=== PATIENT | male | born 1940 | race Caucasian/White ===

== ENCOUNTER 2018-10-02 09:21 | Inpatient (IN) ==
[2018-10-02] MEDS ORDERED: Nitroglycerin 0.4 MG TAB.SUBL SL PRN (12:58)
[2018-10-02] MEDS ORDERED: *HR* OxyCODONE/APAP 5/325 TABLET PO PRN (12:58)
--- NOTE | 2018-10-02 15:55 | Internal Med History&Physical ---
Date of Encounter: 10/02/18 Time of Encounter: 15:30 Assessment and Plan (1) Coronary artery disease Current visit: No Status: Acute Status post three-vessel CABG. Continue aspirin and metoprolol with simvastatin. Qualifiers: Coronary Disease-Associated Artery/Lesion type: [place] artery [place] vs. transplanted heart: [place] heart Associated angina: without angina Qualified Code(s): I25.10 - Atherosclerotic heart disease of [place] coronary artery without angina pectoris (2) Hyperlipidemia Current visit: Yes Status: Chronic Continue simvastatin Qualifiers: Hyperlipidemia type: unspecified Qualified Code(s): E78.5 - Hyperlipidemia, unspecified (3) Postoperative atrial fibrillation Current visit: No Status: Acute Now in NSR. Continue metoprolol, amiodarone, and aspirin. (4) Anemia Current visit: Yes Status: Acute Not present preoperatively. Monitor CBC. Qualifiers: Anemia type: unspecified type Qualified Code(s): D64.9 - Anemia, unspecified Internal Medicine - H&P: HPI Chief complaint: CAD Admitted From: Hospital to Hospital Transfer Plans for Post Hospital Care: Home History of present illness: Mr. Patel is a 78 year old male who underwent elective 3 vessel CABG surgery 09/27/2018 at [facility]. He had HIGHTOWER to LAD, SVG to intermediate branch and obtuse marginal branch #1 of the circumflex. His postop course was completed by transient atrial fibrillation that responded to amiodarone and beta saul. Following stabilization he was discharged to [facility] swing bed for ongoing care n eeds prior to returning to independent living at home. Cardiovascular history is negative for hypertension [place] heart failure angina DVT or pulmonary embolus. Echocardiogram 09/18/2018 showed LVEF of 50-55%. Interventricular septum and posterior wall thickness measurements were 1.35 and 1.30 cm respectively. The E/A ratio was 0.6. There was mild tricuspid regurgitation present. Past Med Surg Social Fam HX - Past Medical History Medical history: hyperlipidemia, hypertension Psychiatric history: no psych history - Past Surgical History Surgical History: coronary bypass (CABG), herniorrhaphy - Social History Smoking Status: Former smoker Smokeless Tobacco Status: No Alcohol use: none Drug use: none - Family History Mother Age at : 84 Hx Family Cardiac Disorders: Yes Father Living Status: Age at : 95 Hx Family Cardiac Disorders: Yes Internal Medicine - H&P: Meds Aspirin [Adult Aspirin] 81 mg PO DAILY 09/18/18 [History] Metoprolol Succinate [Toprol Xl] 25 mg PO DAILY 09/18/18 [History] Nitroglycerin [Nitrostat] 0.4 mg SL DAILY PRN 09/18/18 [History] Simvastatin [Zocor] 40 mg PO HS 09/18/18 [History] Amiodarone [Cordarone] 200 mg PO DAILY #30 tablet 10/02/18 [Rx] DiphenhydraMINE [Benadryl] 50 mg PO HS PRN capsule 10/02/18 [Rx] OxyCODONE/APAP 5/325 [Percocet 5/325 MG] 1 each PO Q4HR PRN 7 Days #10 tablet 10/02/18 [Rx] Allergy/AdvReac Type Severity Reaction Status Date / Time No Known Allergies Allergy Unverified 09/04/18 12:46 All Systems PM: A 10-system review of systems was performed and is negative for pertinent findings except as documented above in the HPI. Review of systems: Gen.: He states his weight has been stable for several months Cardiovascular: As per history of present illness Respiratory: He smoked from age [age] never exceeding 1 pack per day. He denies chronic lung disease and does not use home oxygen GI: He denies disorders of his liver gallbladder or exocrine pancreas : He denies hematuria dysuria or kidney stones Neurologic: He denies large distribution strokes or seizures. Endocrine: He has hyperlipidemia but denies diabetes or thyroid disease Hematology/oncology: Denies blood disorders or cancers. He developed anemia post operatively. Psychiatric: Denies anxiety depression or other mental health diagnoses. [place] skeletal: He denies arthritis gout or other bone joint or muscle disorders. - Constitutional Vitals: Temp Pulse Resp BP Pulse Ox 98.5 F 67 16 134/53 98 10/02/18 11:55 10/02/18 11:55 10/02/18 11:55 10/02/18 11:55 10/02/18 11:55 Exam: Gen.: He is a well-developed well-nourished male resting comfortably in bed who appears in no acute distress HEENT: Head is atraumatic and normocephalic. Eyes: EOMI. There is no scleral icterus. Mouth: Mucosa is moist. Neck: Supple and nontender. There is no thyromegaly or adenopathy noted. Heart: Regular without murmurs gallops or ectopics Lungs: No wheezes or crackles are heard Abdomen: Soft and nontender. No masses or guarding are noted. Chest: He has Steri-Strips over his midline surgical incision. No significant drainage is noted. Extremities: He has significant ecchymosis in his left upper leg. He has a Band-Aid covering an incision in the left lower leg. Dorsalis pedis and tibial pulses are trace palpable bilaterally. He has pallor of his left great toe. Neurologic: Mental status: He is talkative and a good historian. Cranial nerves: Smile is symmetric. Forehead wrinkles bilaterally. Tongue protrudes midline. EOMI. Motor: There is no pronator drift. Cerebellar: Finger to nose is intact bilaterally. Skin: Warm and dry
[2018-10-02] MEDS: Melatonin 3 MG TABLET PO SCH (21:11)
[2018-10-03 07:31] LABS: Basophils % 0.4 %; Eosinophils # 0.2 K/mcL (0.0-0.6); Eosinophils % 2.8 %; Hematocrit 27.7 % (37.5-50.1); Hemoglobin 9.2 g/dL (12.9-16.9); Immature Granulocytes % 0.4 % (0-4); Lymphocytes # 1.2 K/mcL (0.6-4.6); Lymphocytes % 16.3 %; Mean Corpuscular HGB Conc 33.2 g/dL (31.6-35.5); Mean Corpuscular Hemoglobin 32.7 pg (28.0-33.3); Mean Corpuscular Volume 98.6 fL (83.0-100.0); Monocytes # 0.7 K/mcL (0.0-1.3); Monocytes % 10.1 %; Neutrophils # 5.1 K/mcL (1.6-8.9); Platelet Count 204 K/mcL (140-400); Red Blood Count 2.81 M/mcL (4.19-5.50); Red Cell Distribution Width 15.2 % (11.5-14.5)
[2018-10-03 08:54] LABS: % Iron Saturation 12 % (20-55); Iron 31 mcg/dL (65-175); Transferrin 187 mg/dL (203-362)
[2018-10-03 09:12] LABS: Ferritin 191 ng/mL (20-250)
[2018-10-03 09:17] LABS: Folate 13.4 ng/mL (3.0-16.0)
[2018-10-03] MEDS: Metoprolol XL (24 HR) Succ 25 MG TAB.ER.24H PO SCH (09:39)
[2018-10-03] MEDS: Aspirin Enteric Coated 81 MG Tablet PO SCH (09:40)
[2018-10-03] MEDS: *HR* Amiodarone 200 MG TABLET PO SCH (09:40)
--- NOTE | 2018-10-03 15:53 | Internal Med Progress Note ---
Date of Encounter: 10/03/18 Time of Encounter: 15:45 - Assessment and plan (1) Coronary artery disease Current Visit: No Status: Acute Assessment and plan: October 03. Continue aspirin, metoprolol, and simvastatin. Qualifiers: Coronary Disease-Associated Artery/Lesion type: [place] artery [place] vs. transplanted heart: [place] heart Associated angina: without angina Qualified Code(s): I25.10 - Atherosclerotic heart disease of [place] coronary artery without angina pectoris (2) Hyperlipidemia Current Visit: Yes Status: Chronic Assessment and plan: October 03. Continue simvastatin Qualifiers: Hyperlipidemia type: unspecified Qualified Code(s): E78.5 - Hyperlipidemia, unspecified (3) Postoperative atrial fibrillation Current Visit: No Status: Acute Assessment and plan: October 03. Continue metoprolol, amiodarone, and aspirin (4) Anemia Current Visit: Yes Status: Acute Assessment and plan: October 03. Anemia testing showed iron 31, transferrin saturation 12%, transferrin 187, ferritin 191, B12 277, and folate 13.4. Hemoglobin has improved to 9.2. Start ferrous sulfate with ascorbic acid in a.m. Qualifiers: Anemia type: unspecified type Qualified Code(s): D64.9 - Anemia, unspecified - Subjective Interval history: October 03. He has no new complaints and feels well. - Constitutional Vitals: Temp Pulse Resp BP Pulse Ox 98.2 F 72 18 109/62 98 10/03/18 06:51 10/03/18 06:51 10/03/18 06:51 10/03/18 06:51 10/03/18 14:37 Exam: He is sitting in a chair at bedside resting comfortably. His affect is bright and cheerful. I reviewed his medications and lab results. Internal Medicine: Result - Labs CBC & Chem 7: 10/03/18 07:24 Labs: Short CBC 10/03/18 Range/Units 07:24 WBC 7.3 (4.3-11.1) K/mcL Hgb 9.2 L (12.9-16.9) g/dL Hct 27.7 L (37.5-50.1) % Plt Count 204 D (140-400) K/mcL Neutrophils # 5.1 (1.6-8.9) K/mcL Consult Discharge Plan - Plan Referrals: Solange Parker DO [Primary Care Provider] - 1 week
[2018-10-03] MEDS: Melatonin 3 MG TABLET PO SCH (22:14)
[2018-10-04] MEDS: Ascorbic Acid 500 MG TABLET PO SCH (05:44)
[2018-10-04] MEDS: Aspirin Enteric Coated 81 MG Tablet PO SCH (10:11)
[2018-10-04] MEDS: Metoprolol XL (24 HR) Succ 25 MG TAB.ER.24H PO SCH (10:11)
[2018-10-04] MEDS: *HR* Amiodarone 200 MG TABLET PO SCH (10:11)
[2018-10-04] MEDS: Melatonin 3 MG TABLET PO SCH (21:08)
[2018-10-05] MEDS: Ascorbic Acid 500 MG TABLET PO SCH (06:35)
[2018-10-05] MEDS: Metoprolol XL (24 HR) Succ 25 MG TAB.ER.24H PO SCH (08:37)
[2018-10-05] MEDS: *HR* Amiodarone 200 MG TABLET PO SCH (08:37)
[2018-10-05] MEDS: Aspirin Enteric Coated 81 MG Tablet PO SCH (08:37)
--- NOTE | 2018-10-05 11:15 | Internal Med Progress Note ---
Date of Encounter: 10/05/18 Time of Encounter: 11:00 - Assessment and plan (1) Coronary artery disease Current Visit: No Status: Acute Assessment and plan: October 03. Continue aspirin, metoprolol, and simvastatin. Qualifiers: Coronary Disease-Associated Artery/Lesion type: [place] artery [place] vs. transplanted heart: [place] heart Associated angina: without angina Qualified Code(s): I25.10 - Atherosclerotic heart disease of [place] coronary artery without angina pectoris (2) Hyperlipidemia Current Visit: Yes Status: Chronic Assessment and plan: October 03. Continue simvastatin Qualifiers: Hyperlipidemia type: unspecified Qualified Code(s): E78.5 - Hyperlipidemia, unspecified (3) Postoperative atrial fibrillation Current Visit: No Status: Acute Assessment and plan: October 03. Continue metoprolol, amiodarone, and aspirin (4) Anemia Current Visit: Yes Status: Acute Assessment and plan: October 03. Anemia testing showed iron 31, transferrin saturation 12%, transferrin 187, ferritin 191, B12 277, and folate 13.4. Hemoglobin has improved to 9.2. Start ferrous sulfate with ascorbic acid in a.m. October 05. Continue ferrous sulfate with ascorbic acid. Monitor CBC periodically. Qualifiers: Anemia type: unspecified type Qualified Code(s): D64.9 - Anemia, unspecified - Subjective Interval history: October 03. He has no new complaints and feels well. October 05. He has no new complaints and feels well. He states he does not sleep well at night. He has minimal pain in his chest and legs. He denies dyspnea. - Constitutional Vitals: Temp Pulse Resp BP Pulse Ox 97.6 F 71 18 116/68 95 10/05/18 06:58 10/05/18 08:35 10/05/18 06:58 10/05/18 08:35 10/05/18 08:35 Exam: He is resting comfortably in bed and appears in no acute distress. His affect is bright and cheerful. He is wearing RADHA hose. There is no leg edema present. I reviewed his medications and lab results. Internal Medicine: Result - Labs CBC & Chem 7: 10/03/18 07:24 - VTE Documentation of Mechanical Device: Graduated compression elastic hosiery Consult Discharge Plan - Plan Referrals: Solange Parker DO [Primary Care Provider] - 1 week
[2018-10-05] MEDS ORDERED: traZODone 50 MG TABLET PO SCH (21:00)
[2018-10-05] MEDS: Melatonin 3 MG TABLET PO SCH (22:28)
[2018-10-06] MEDS: Ascorbic Acid 500 MG TABLET PO SCH (06:49)
[2018-10-06 07:15] VITALS: BP 133/74
[2018-10-06] MEDS: *HR* Amiodarone 200 MG TABLET PO SCH (09:51)
[2018-10-06] MEDS: Metoprolol XL (24 HR) Succ 25 MG TAB.ER.24H PO SCH (09:51)
[2018-10-06] MEDS: Aspirin Enteric Coated 81 MG Tablet PO SCH (09:52)
--- NOTE | 2018-10-06 14:48 | Discharge Summary ---
Date of Encounter: 10/06/18 Time of Encounter: 14:35 - Discharge Diagnosis (1) Coronary artery disease Priority: Primary Status: Acute Qualifiers: Coronary Disease-Associated Artery/Lesion type: [place] artery [place] vs. transplanted heart: [place] heart Associated angina: without angina Qualified Code(s): I25.10 - Atherosclerotic heart disease of [place] coronary artery without angina pectoris (2) Hyperlipidemia Priority: Secondary Status: Chronic Qualifiers: Hyperlipidemia type: unspecified Qualified Code(s): E78.5 - Hyperlipidemia, unspecified (3) Postoperative atrial fibrillation Priority: Secondary Status: Acute (4) Anemia Priority: Secondary Status: Acute Qualifiers: Anemia type: unspecified type Qualified Code(s): D64.9 - Anemia, unspecified Hospital course: Mr. Patel is a 78 year old male who underwent elective 3 vessel CABG surgery 09/27/2018 at [facility]. He had HIGHTOWER to LAD, SVG to intermediate branch and obtuse marginal branch #1 of the circumflex. His postop course was completed by transient atrial fibrillation that responded to amiodarone and beta saul. Following stabilization he was discharged to [facility] swing bed for ongoing care needs prior to returning to independent living at home. Initial orders were written by the discharging physician at [facility]. I saw him on October 02 and performed a swing bed history and physical. He continued aspirin, amiodarone, metoprolol, and simvastatin. He had no cardiovascular problems during the swing bed stay. PT and OT evaluations with ongoing intervention were done. He made satisfactory progress. Anemia testing showed iron 31, transferrin saturation 12%, transferrin 187, ferritin 191, B12 277, and folate 13.4. He was started on ferrous sulfate with ascorbic acid and these will be continued at discharge. On October 06 he felt stable for discharge home. He will follow with his PCP Dr. Parker within 1 week. He will follow with his thoracic surgeon as directed. - Time Spent with Patient Total time spent providing and/or coordinating discharge services: - Discharge Medications Prescriptions: New Ferrous Sulfate 325 mg PO 0630 #30 tablet Ascorbic Acid [Vitamin C] 500 mg PO 0630 #30 tablet Continued Simvastatin [Zocor] 40 mg PO HS Nitroglycerin [Nitrostat] 0.4 mg SL DAILY PRN PRN Reason: Chest Pain Aspirin [Adult Aspirin] 81 mg PO DAILY DiphenhydraMINE [Benadryl] 50 mg PO HS PRN capsule PRN Reason: Sleep OxyCODONE/APAP 5/325 [Percocet 5/325 MG] 1 each PO Q4HR PRN 7 Days #10 tablet PRN Reason: Severe Pain Amiodarone [Cordarone] 200 mg PO DAILY #30 tablet Metoprolol Succinate [Toprol Xl] 25 mg PO DAILY #30 tab.er.24h Home Medications: Aspirin [Adult Aspirin] 81 mg PO DAILY 09/18/18 [History] Nitroglycerin [Nitrostat] 0.4 mg SL DAILY PRN 09/18/18 [History] Simvastatin [Zocor] 40 mg PO HS 09/18/18 [History] DiphenhydraMINE [Benadryl] 50 mg PO HS PRN capsule 10/02/18 [Rx] OxyCODONE/APAP 5/325 [Percocet 5/325 MG] 1 each PO Q4HR PRN 7 Days #10 tablet 10/02/18 [Rx] Amiodarone [Cordarone] 200 mg PO DAILY #30 tablet 10/06/18 [Rx] Ascorbic Acid [Vitamin C] 500 mg PO 0630 #30 tablet 10/06/18 [Rx] Ferrous Sulfate 325 mg PO 0630 #30 tablet 10/06/18 [Rx] Metoprolol Succinate [Toprol Xl] 25 mg PO DAILY #30 tab.er.24h 10/06/18 [Rx] Allergies/Adverse Reactions: Allergy/AdvReac Type Severity Reaction Status Date / Time No Known Allergies Allergy Unverified 09/04/18 12:46 Date of admission: 10/02/18 11:40 Primary care physician: Solange Parker DO Consults: 10/02/18 12:53 Consult to Occupational Therapy [CONS] Routine Comment: Evaluate, develop and implement POC Reason for Consult: Evaluate, develop and implement POC Does patient have active BEDREST order?: No Is patient medically & hemodynamically stable?: Yes Patient assessed for mobility or mobilized this visit?: No Consult to Physical Therapy [CONS] Routine Comment: Evaluate, develop and implement POC Reason for Consult: Evaluate, develop and implement POC Does patient have active BEDREST order?: No Is patient medically & hemodynamically stable?: Yes Patient assessed for mobility or mobilized this visit?: No - Constitutional Vitals: Temp Pulse Resp BP Pulse Ox 98.3 F 72 20 133/74 94 10/06/18 07:13 10/06/18 07:13 10/06/18 07:13 10/06/18 07:13 10/06/18 07:13 - Patient Status Disposition: Home Health Service - Discharge Instructions Follow Up With: Solange Parker DO [Primary Care Provider] - 1 week (will be made following ) - Diet and Activity Activity: as per physical therapy Diet: low fat, low cholesterol - VTE Documentation of Mechanical Device: Graduated compression elastic hosiery
--- NOTE | 2018-10-06 14:55 | Physician Discharge Referral ---
Home Health/Hosp Referral Info Transfer to: Home Health Attending Provider: Agusto Provider in Charge Post Discharge: PCP James) - Diagnosis (1) Coronary artery disease Priority: Primary Status: Acute (2) Hyperlipidemia Priority: Secondary Status: Chronic (3) Postoperative atrial fibrillation Priority: Secondary Status: Acute (4) Anemia Priority: Secondary Status: Acute - Respiratory Orders Smoking Cessation: Smoking cessation has been advised. For more information, call the [place] Tobacco Quit Line at 5-564-BOGR-NOW. - Diet/Nutrition Diet/Nutrition Orders: Cardiac - Activity Activity Orders: Ambulate - Services Needed Following services are medically necessary services: Nursing, Home Health Aide, Physical Therapy, Occupational Therapy - Transfer Medications Prescriptions: Amiodarone [Cordarone] 200 mg PO DAILY #30 tablet Ferrous Sulfate 325 mg PO 0630 #30 tablet Metoprolol Succinate [Toprol Xl] 25 mg PO DAILY #30 tab.er.24h Ascorbic Acid [Vitamin C] 500 mg PO 0630 #30 tablet Home Medications: Aspirin [Adult Aspirin] 81 mg PO DAILY 09/18/18 [History] Nitroglycerin [Nitrostat] 0.4 mg SL DAILY PRN 09/18/18 [History] Simvastatin [Zocor] 40 mg PO HS 09/18/18 [History] DiphenhydraMINE [Benadryl] 50 mg PO HS PRN capsule 10/02/18 [Rx] OxyCODONE/APAP 5/325 [Percocet 5/325 MG] 1 each PO Q4HR PRN 7 Days #10 tablet 10/02/18 [Rx] Amiodarone [Cordarone] 200 mg PO DAILY #30 tablet 10/06/18 [Rx] Ascorbic Acid [Vitamin C] 500 mg PO 0630 #30 tablet 10/06/18 [Rx] Ferrous Sulfate 325 mg PO 0630 #30 tablet 10/06/18 [Rx] Metoprolol Succinate [Toprol Xl] 25 mg PO DAILY #30 tab.er.24h 10/06/18 [Rx] Allergies/Adverse Reactions: Allergy/AdvReac Type Severity Reaction Status Date / Time No Known Allergies Allergy Unverified 09/04/18 12:46 Certification: Further, I certify that my clinical findings support that this patient is homebound (i.e. absences from home require considerable and taxing effort and a re for medical reasons or jehovah's witness services or infrequently or short duration when for other reasons) because: Homebound Reason: Leaving home requires considerable and taxing effort due to condition (ASHD status post CABG) Attestation: My signature below is to certify that this patient is under my care and that I, or nurse practitioner, or a physician's bankruptcy assistant working with me, has a [id number] encounter with this patient.
== END 2018-10-06 15:20 | disposition home health service (06) | DRG 303 ==
LOC: INPPIK 11:40
PROVIDERS: ADMIT Internal Medicine; ATTEND Internal Medicine